=== PATIENT | female | born 1995 | race Caucasian/White ===

== ENCOUNTER 2018-08-08 01:08 | Emergency (ER) | payer BC, OTHER ==
--- NOTE | 2018-08-08 02:46 | ER Document Report ---
ED General - General Chief Complaint: Chest Pain Stated Complaint: CHEST PAIN Time Seen by Provider: 08/08/18 02:36 Notes: Patient is a 23-year-old female presents with complaint of chest pain. She says it feels like a pressure type pain going throughout her entire chest. Says it is worse when she takes a deep breath. Started earlier today. Some mild shortness of breath. No fevers. No vomiting. No abdominal pain. No vaginal bleeding. She is 29 weeks . She denies ever having this before. The only complication with her thus far is that she recently tested positive for gestational diabetes; however, her repeat testing was normal. No high blood pressure. No preeclampsia thus far. No other complaints at this time. No extremity pain or swelling. TRAVEL OUTSIDE OF THE [place] IN LAST 30 DAYS: No - Related Data Allergies/Adverse Reactions: No Known Allergies Allergy (Unverified 08/08/18 01:11) Past Medical History - Social History Smoking Status: Never Smoker Frequency of alcohol use: None Drug Abuse: None Family History: Reviewed & Not Pertinent Patient has suicidal ideation: No Patient has homicidal ideation: No Renal/ Medical History: Denies: Hx Peritoneal Dialysis Review of Systems - Review of Systems Notes: My Normal Review Basic REVIEW OF SYSTEMS: CONSTITUTIONAL : Denies fever, chills, or sweats. Denies recent illness. EENT: Denies eye, ear, throat, or mouth pain or symptoms. Denies nasal or sinus congestion. CARDIOVASCULAR: Denies chest pain. RESPIRATORY: Dyspnea GASTROINTESTINAL: Denies abdominal pain. Denies nausea, vomiting, or diarrhea. GENITOURINARY: Denies difficulty urinating, painful urination, burning, frequ ency, or blood in urine. FEMALE GENITOURINARY: Denies vaginal bleeding, abnormal or irregular periods. LMP: Currently MUSCULOSKELETAL: Denies neck or back pain or joint pain or swelling. SKIN: Denies rash or skin lesions. NEUROLOGICAL: Denies altered mental status or loss of consciousness. Denies headache. Denies weakness or paralysis or loss of use of either side. Denies problems with gait or speech. Denies sensory or motor loss. ALL OTHER SYSTEMS REVIEWED AND NEGATIVE. Physical Exam - Vital signs Vitals: Temp Pulse Resp BP Pulse Ox 98.0 F 107 H 18 133/72 H 100 08/08/18 01:29 08/08/18 01:29 08/08/18 01:29 08/08/18 01:29 08/08/18 01:29 - Notes Notes: General Appearance: Well nourished, alert, cooperative, no acute distress, no obvious discomfort. Well-appearing. Vitals: reviewed, See vital signs table. Head: no swelling or tenderness to the head Eyes: PERRL, EOMI, Conjuctiva clear Mouth: No decreasd moisture Lungs: No wheezing, No rales, No rhonci, No accessory muscle use, good air exchange bilaterally. Heart: Tachycardic rate, Regular rythm, No murmur, no rub Abdomen: Normal BS, soft, No rigidity, No abdominal tenderness, No guarding, no rebound, no abdominal masses, no organomegaly Extremities: strength 5/5 in all extremities, good pulses in all extremities, no swelling or tenderness in the extremities, no edema. Skin: warm, dry, appropriate color, no rash Neuro: speech clear, oriented x 3, normal affect, responds appropriately to questions. Course - Re-evaluation Re-evalutation: 08/08/18 03:13 Patient has pleuritic chest pain with tachycardia and . Talk to patient length informed her that we do need to rule out PE. I talked at length about CT scan and radiation risks. Informed her that there is some slight radiation risk to the baby however this is less and most the radiation risk is actually to the mother itself. 08/08/18 05:[address] scan had a miss timed contrast bolus. I therefore was able to rule out large central PEs but not smaller peripheral PEs. Patient's oxygenation is 100%on room air. She looks well. She still has some pain but is reproducible palpation also and now she is noticing that it hurts worse if she leans forward. Suggest that this probably is muscular skeletal. She has had no recent fevers and has no pericardial effusion therefore pericarditis is highly unlikely. She clinically looks well. I informed her that I still recommend going forward with an ultrasound of the legs to make sure is no evidence of DVT being that the CT scan is not 100% conclusive. She agrees with this but does not want to wait here in the ED and prefers to have this performed out patiently. I therefore have written a prescription for an outpatient venous Doppler report performed. I strongly encouraged her return to ER immediately if she has fevers, worsening pain, difficulty breathing, or she feels unwell in any way. Patient agrees with plan will be discharged home. Dictation of this chart was performed using voice recognition software; therefore, there may be some unintended grammatical errors. - Vital Signs Vital signs: Temp Pulse Resp BP Pulse Ox 98.0 F 107 H 23 H 117/67 99 08/08/18 01:29 08/08/18 01:29 08/08/18 05:00 08/08/18 03:41 08/08/18 05:00 - Laboratory Result Diagrams: 08/08/18 03:13 08/08/18 03:13 Laboratory results interpreted by me: 08/08/18 08/08/18 08/08/18 02:31 03:13 03:13 RBC 2.96 L Hgb 9.1 L Hct 26.3 L Sodium 136.8 L Potassium 3.3 L Carbon Dioxide 20 L BUN 5 L Creatinine 0.37 L Glucose 111 H Urine Ketones TRACE H Ur Leukocyte Esterase MODERATE H - EKG Interpretation by Me Additional EKG results interpreted by me: 08/08/18 02:37 EKG is reviewed and interpreted by me. EKG shows sinus tachycardia with a rate of [address] segment elevation or depression. NM interval, QRS duration, QTc intervals are within normal range. No old EKG available for comparison. Discharge - Discharge Clinical Impression: Chest pain Qualifiers: Chest pain type: unspecified Qualified Code(s): R07.9 - Chest pain, unspecified Condition: Good Disposition: HOME, SELF-CARE Additional Instructions: The exact cause of your chest pain is not 100% clear. There is a good chance that it could be related to musculoskeletal tenderness of your rib cage pain being that your pain is worse with palpation and also worse when you go to lean forward. Being that your pain was worse with deep breathing we did do a CT scan looking at your lungs. This did not show evidence of a large or central blood clot. As discussed with you, the CT scan was unable to fully rule out small blood clots in the periphery of the lung. Because of this we do recommend going forward with an ultrasound of your lower extremities. If this is negative then at this time I do not feel that you need blood thinning medications. I have written you a prescription for an outpatient ultrasound of your legs to be performed. Please call the number and prescription and they will call you with an appointment time. Please follow-up very closely with your OB doctor this week for reevaluation. Have a low threshold to return to ER if you have worsening pain, difficulty breathing, fevers, or feel unwell. Forms: Follow-Up Outpatient Testing
[2018-08-08] MEDS ORDERED: NORMAL SALINE 1000 ML 1,000 ML IV ONE (02:47)
[2018-08-08 02:54] LABS: AMORPHOUS SEDIMENT,URINE TRACE /HPF; APPEARANCE,URINE SLIGHTLY-CLOUDY; BILIRUBIN,URINE NEGATIVE (NEGATIVE); COLOR,URINE YELLOW; GLUCOSE, URINE NEGATIVE (NEGATIVE); KETONES,URINE TRACE mg/dL (NEGATIVE); LEUKOCYTE ESTERASE,URINE MODERATE (NEGATIVE); NITRITE,URINE NEGATIVE (NEGATIVE); PROTEIN,URINE NEGATIVE (NEGATIVE); URINE SPECIFIC GRAVITY 1.008; UROBILINOGEN,URINE NEGATIVE mg/dL (<2.0)
[2018-08-08 03:23] LABS: ABSOLUTE LYMPHOCYTES (AUTO) 1.2 10^3/uL (0.5-4.7); ABSOLUTE MONOCYTES (AUTO) 0.7 10^3/uL (0.1-1.4); ABSOLUTE NEUT (AUTO) 6.3 10^3/uL (1.7-8.2); BASOPHILS % (AUTO) 0.2 % (0-2); EOSINOPHILS % (AUTO) 0.5 % (0-6); HEMATOCRIT 26.3 % (36.0-47.0); HEMOGLOBIN 9.1 g/dL (12.0-15.5); LYMPHOCYTES % (AUTO) 14.8 % (13-45); MEAN CORPUSCULAR HEMOGLOBIN 30.6 pg (27.0-33.4); MEAN CORPUSCULAR HGB CONC 34.5 g/dL (32.0-36.0); MEAN CORPUSCULAR VOLUME 89 fl (80-97); MONOCYTES % (AUTO) 8.5 % (3-13); PLATELET COUNT 294 10^3/uL (150-450); RED BLOOD COUNT 2.96 10^6/uL (3.72-5.28); RED CELL DISTRIBUTION WIDTH 13.3 % (11.5-14.0); TOTAL CELLS COUNTED % (AUTO) 100 %; WHITE BLOOD COUNT 8.3 10^3/uL (4.0-10.5)
[2018-08-08 03:33] LABS: ANION GAP 10 (5-19); BLOOD UREA NITROGEN 5 mg/dL (7-20); CALCIUM 8.9 mg/dL (8.4-10.2); CARBON DIOXIDE 20 mmol/L (22-30); CHLORIDE 107 mmol/L (98-107); GLUCOSE 111 mg/dL (75-110); POTASSIUM 3.3 mmol/L (3.6-5.0); SODIUM 136.8 mmol/L (137-145)
[2018-08-08] MEDS ORDERED: POTASSIUM CHLORIDE 10 MEQ CAPSULE.ER PO ONE (04:07)
--- NOTE | 2018-08-08 04:35 | RADIOLOGY REPORT (SQ) ---
EXAM DESCRIPTION: CT CHEST ANGIOGRAPHY WITHOUT THEN WITH IV CONTRAST COMPLETED DATE/TME: 08/08/2018 02:46 CLINICAL HISTORY: 23 years, Female, chest pain, tachycardia in COMPARISON: None. TECHNIQUE: [id number] Images stored on PACS. All CT scanners at this facility use dose modulation, iterative reconstruction, and/or weight based dosing when appropriate to reduce radiation dose to as low as reasonably achievable (ALARA). Axial CTA images with coronal and sagittal MIPS reconstructions [facility]: Dose Right [facility]: CareDose [facility]: Dose Right [facility]: Teradose 4D [facility]: [employer] LIMITATIONS: None. FINDINGS: Contrast bolus is nearly nondiagnostic. No large or central pulmonary embolus. Evaluation of the remaining branches are nondiagnostic. Negative for thoracic aortic aneurysm or dissection. No mediastinal or hilar adenopathy. Heart and pericardium are unremarkable. Limited evaluation of upper abdomen unremarkable. Osseous structures grossly intact. No pneumothorax. Tiny left pleural effusion. IMPRESSION: Nearly nondiagnostic exam. No large or central pulmonary embolus. Tiny left pleural effusion TECHNICAL DOCUMENTATION: Quality ID # [id number]: Final reports with documentation of one or more dose reduction techniques (e.g., Automated exposure control, adjustment of the mA and/or kV according to patient size, use of iterative reconstruction technique) copyright 2010 [employer]- All Rights Reserved
[2018-08-08] MEDS ORDERED: ACETAMINOPHEN 325 MG TABLET PO ONE (04:51)
[2018-08-08 06:08] VITALS: BP 114/72
--- NOTE | 2018-08-08 10:39 | EKG REPORT ---
SEVERITY:- OTHERWISE NORMAL ECG - SINUS TACHYCARDIA LVH : Confirmed by: Robert Smith 08-Aug-2018 10:38:41
== END 2018-08-08 06:10 | disposition home or self-care (01) ==
LOC: ER 01:08
DX: O26.892 Other specified pregnancy related conditions, second trimester (principal); R07.89 Other chest pain; R00.0 Tachycardia, unspecified; R06.02 Shortness of breath; Z3A.26 26 weeks gestation of pregnancy
CPT/HCPCS: 93005; 99285; 96360; 36415; 82962; 87086; 85025; 80048; 81001; 71275; 93010; J7030

== ENCOUNTER 2018-10-08 13:01 | Outpatient (CLI) | payer BC, OTHER ==
[~2018-10-08 13:01] MED LIST: FERRIC CARBOXYMALTOSE 750 MG in NORMAL SALINE 250 ML IV PRN; NORMAL SALINE 250 ML IV PRN
[2018-10-08 14:05] VITALS: BP 131/66
== END 2018-10-08 14:33 | disposition home or self-care (01) ==
LOC: II 13:01 → 5TH 14:02 → II 14:33
PROVIDERS: ATTEND Midwife
PROC: 3E033GC Introduction of Other Therapeutic Substance into Peripheral Vein, Percutaneous Approach (ICD-10-PCS; principal; 2018-10-08)
DX: O99.019 Anemia complicating pregnancy, unspecified trimester (principal)
CPT/HCPCS: 96365; J7050; J1439

== ENCOUNTER 2018-10-15 13:07 | Outpatient (CLI) | payer BC, OTHER ==
[2018-10-15 13:38] VITALS: BP 135/66
== END 2018-10-15 14:07 | disposition home or self-care (01) ==
LOC: II 13:07 → 5TH 13:09 → II 14:07
PROVIDERS: ATTEND Midwife
PROC: 3E033GC Introduction of Other Therapeutic Substance into Peripheral Vein, Percutaneous Approach (ICD-10-PCS; principal; 2018-10-15)
DX: O99.019 Anemia complicating pregnancy, unspecified trimester (principal)
CPT/HCPCS: 96365; J7050; J1439

== ENCOUNTER 2018-10-27 00:15 | Inpatient (IN) | payer BC, OTHER ==
[2018-10-27 01:00] LABS: APPEARANCE,URINE CLOUDY; BILIRUBIN,URINE NEGATIVE (NEGATIVE); COLOR,URINE YELLOW; GLUCOSE, URINE NEGATIVE (NEGATIVE); KETONES,URINE NEGATIVE (NEGATIVE); LEUKOCYTE ESTERASE,URINE TRACE (NEGATIVE); NITRITE,URINE NEGATIVE (NEGATIVE); PROTEIN,URINE NEGATIVE (NEGATIVE); URINE SPECIFIC GRAVITY 1.003; UROBILINOGEN,URINE NEGATIVE mg/dL (<2.0)
[2018-10-27] MEDS ORDERED: RINGERS SOLUTION,LACTATED 1,000 ML IV PRN (01:07)
[2018-10-27] MEDS ORDERED: RINGERS SOLUTION,LACTATED 1,000 ML IV ONE (01:07)
[2018-10-27] MEDS ORDERED: MISOPROSTOL 0.2 MG TABLET ONE ×2 (01:25→17:35)
[2018-10-27] MEDS ORDERED: OXYTOCIN 10 UNIT/ML VIAL ONE (01:25)
[2018-10-27] MEDS ORDERED: LIDOCAINE 1% INJ-PF (10 MG/ML) 30 ML SDV ONE (01:25)
[2018-10-27] MEDS ORDERED: OXYTOCIN/NORMAL SALINE 0 UNIT/0 ML RTUINJ ONE (01:25)
[2018-10-27 01:35] LABS: URINE AMPHETAMINES SCREEN NEGATIVE; URINE BARBITURATES SCREEN NEGATIVE; URINE BENZODIAZEPINES SCREEN NEGATIVE; URINE COCAINE SCREEN NEGATIVE; URINE MARIJUANA (THC) SCREEN NEGATIVE; URINE METHADONE SCREEN NEGATIVE; URINE PHENCYCLIDINE SCREEN NEGATIVE
[2018-10-27 01:37] LABS: ABSOLUTE EOSINOPHILS # (AUTO) 0.1 10^3/uL (0.0-0.6); ABSOLUTE MONOCYTES (AUTO) 0.8 10^3/uL (0.1-1.4); ABSOLUTE NEUT (AUTO) 4.8 10^3/uL (1.7-8.2); BASOPHILS % (AUTO) 0.5 % (0-2); EOSINOPHILS % (AUTO) 1.7 % (0-6); HEMATOCRIT 27.4 % (36.0-47.0); HEMOGLOBIN 9.1 g/dL (12.0-15.5); LYMPHOCYTES % (AUTO) 26.2 % (13-45); MEAN CORPUSCULAR HEMOGLOBIN 28.5 pg (27.0-33.4); MEAN CORPUSCULAR HGB CONC 33.4 g/dL (32.0-36.0); MEAN CORPUSCULAR VOLUME 85 fl (80-97); PLATELET COUNT 197 10^3/uL (150-450); RED BLOOD COUNT 3.21 10^6/uL (3.72-5.28); RED CELL DISTRIBUTION WIDTH 19.3 % (11.5-14.0); SEGMENTED NEUTROPHILS % (AUTO) 61.6 % (42-78); TOTAL CELLS COUNTED % (AUTO) 100 %; WHITE BLOOD COUNT 7.8 10^3/uL (4.0-10.5)
[2018-10-27] MEDS ORDERED: OXYTOCIN/NORMAL SALINE 20 UNIT/1,000 ML RTUINJ IV PRN ×2 (03:15→11:39)
[2018-10-27] MEDS ORDERED: OXYTOCIN/NORMAL SALINE 20 UNIT/1,000 ML RTUINJ ONE ×2 (04:32→18:52)
[2018-10-27] MEDS ORDERED: PHENYLEPHRINE HCL INJ/PF 10 MG/1 ML SDV ONE (06:44)
[2018-10-27] MEDS ORDERED: BUPIVACAINE HCL 0.25 % INJ/PF (2.5 MG/1 ML) 30 ML VIAL ONE (06:45)
[2018-10-27] MEDS ORDERED: EPHEDRINE SULFATE INJ 50 MG/1 ML AMPULE ONE (06:45)
[2018-10-27] MEDS ORDERED: FENTANYL/BUPIVACAINE/NS/PF 300 MCG/150 ML RTUINJ EPI ONE (06:45)
[2018-10-27] MEDS ORDERED: FENTANYL CITRATE INJ/PF 100 MCG/2 ML AMPUL ONE (06:45)
--- NOTE | 2018-10-27 06:58 | Admission Physical ---
Datetime Report Generated by CPN: 10/27/2018 06:58 CURRENT ADMISSION Chief Complaint: Uterine Contractions; Suspected Ruptured Membranes Indication for Induction: PROM Indication for Induction- Other: Augmentation for PROM Admit Impression : Term, Intrauterine ; No Active Labor; Ruptured Membranes; Induction of Labor Admit Plan: Admit to Unit; Initiate Labor Induction Protocol ALLERGIES Medication Allergies: No Medication Allergies: No Known Allergies (10/27/2018) Latex: No Latex Allergies OBSTETRICAL HISTORY EDC: 10/25/2018 00:00 : 1 Para: 0 Term: 0 : 0 SAB: 0 IAB: 0 Ectopic: 0 Livin Cesareans: 0 VBACs: 0 Multiple Births: 0 Gestational Diabetes: Yes Rh Sensitization: No Incompetent Cervix: No FRANCESCA: No Infertility: No ART Treatment: No Uterine Anomaly: No IUGR: No Hx Previous C/S: No Macrosomia: No Hx Loss/Stillborn: No PIH: No Hx : No Placenta Previa/Abruption: No Depression/PP Depression: No PTL/PROM: No Post Hemorrhage: No Current Procedures: Ultrasound Obstetrical History Comments: G1- Current; GDM diet controlled; anemia w/iron transfusion SEE RECORDS Alcohol: No Marijuana : No Cocaine: No Other Illicit Drugs: No Cigarettes: Former Smoker. 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 Surgery: No Heart Disease: No Hosp/Surgery: No Autoimmune Disorder: No Anesthetic Complications: No Kidney Disease: No Abnormal Pap Smear: No Neuro/Epilepsy: No Psychiatric Disorders: No Other Medical Diseases: No Hepatitis/Liver Disease: No Significant Family History: No Varicosities/Phlebitis: No Trauma/Violence : No Thyroid Dysfunction: No INFECTIOUS HISTORY Gonorrhea: No Genital Herpes: No Chlamydia: No Tuberculosis: No Syphilis: No Hepatitis: No HIV/AIDS Exposure: No Rash or Viral Illness: No HPV: No PHYSICAL EXAM General: Normal HEENT: Normal Neurologic: Normal Thyroid: Deferred Heart: Normal Lungs: Normal Breast: Deferred Back: Normal Abdomen: Normal Genitourinary Exam: Normal Extremities: Normal DTRs: Normal Pelvic Type: Adequate Vital Signs: Reviewed VAGINAL EXAM Dilatation: 6 Effacement: 80 Station: -1 Contraction Comments: q 2-4 MEMBRANES Membranes: Ruptured Amniotic Fluid Color: Clear FETUS A EGA: 40.2 Monitoring: External US FHR- Baseline: 125 Variability: Moderate 6-25bpm Accelerations: 15X15 Decelerations: None FHR Category: Category I Presentation: Vertex Admit Comment: 23yo at 40+2ega presents for PROM at approx 2330 (ctx started at approx 2030). Cvx was initially 3cm then after 2 hours on floor no significant change and ctx spacing out. Pitocin started. A1GDM with patient intermittently bringing log. Admit to Labor and delivery for PROM. Anticipate . GBS negative. also complicated by anemia - recieving iron infusions . PLANS FOR LABOR AND DELIVERY Labor and Delivery: None Pain Management: Natural Feeding Preference: Breast Benefit of Breast Feed Discussed: Yes Circumcision: N/A INFORMED CONSENT Informed Consent Obtained: Vaginal Delivery; Induction of Labor; Risks, Benefits and Alternatives Discussed Signature: with User ID: [email or web address]
[2018-10-27] MEDS ORDERED: ACETAMINOPHEN WITH CODEINE #3 TABLET PO PRN ×2 (11:39→18:17)
[2018-10-27] MEDS ORDERED: ZOLPIDEM TARTRATE 5 MG TABLET PO PRN (11:39)
[2018-10-27] MEDS ORDERED: MEASLES,MUMPS&RUBELLA VACC/PF 0.5 ML VIAL SUBCUT PRN (11:39)
[2018-10-27] MEDS ORDERED: DIBUCAINE 1% OINTMENT 56 GM TP PRN (11:39)
[2018-10-27] MEDS ORDERED: BENZOCAINE/MENTHOL AEROSOL SPRAY 56 ML TOP PRN (11:39)
[2018-10-27] MEDS ORDERED: DIPH/PERTUSS(ACELL)/TETANUS VAC/PF 0.5 ML SYR (>=10YO) IM PRN (11:39)
--- NOTE | 2018-10-27 11:46 | Warning Signs in Babies ---
VOD Warning Signs Datetime Report Generated by [facility]: 10/27/2018 11:46 VOD#608 -Warning Signs in Babies: Needs to be viewed. (10/27/2018 11:30:Isac Castillo RN)
--- NOTE | 2018-10-27 11:57 | Warning Signs in Babies ---
VOD Warning Signs Datetime Report Generated by [facility]: 10/27/2018 11:57 VOD#608 -Warning Signs in Babies: Viewed with Parent(s)/Family (10/27/2018 11:30:Isac Castillo RN)
[2018-10-27] MEDS ORDERED: IBUPROFEN 800 MG TABLET ONE (12:11)
--- NOTE | 2018-10-27 13:25 | Delivery Summary ---
Del Sum A-C Datetime Report Generated by CPN: 10/27/2018 13:24 DELIVERY PERSONNEL DELIVERY PERSONNEL: [id number] Delivery Doctor:: Sahra Olivares CNM Labor and Delivery Nurse:: Iasc Castillo RNcontinuous pillowcase cutter Nurse:: YAHIR Phillips Supervisor Lead Burning/MEAT STOCKER: Fabio Foley, CABLE INSTALLER REPAIRER HELPER Additional Personnel: : Cyndee Yun RN MATERNAL INFORMATION Delivery Anesthesia: Epidural Medications After Delivery: Pitocin Bolus-Please Comment; Pitocin Drip 20 Units/1000ml NSS Meds After Delivery Comment: Pitocin 20 units in 1000 mL bolusing Maternal Complications: None Provider Comments: of viable female. Body cord noted at delivery. Baby vigorous and crying. Placed on pts abdoman in stable condition. Delayed cord clamping x 2 minutes. then cord clamped and cut. Cord blood obtained. Placenta S/C/I, IV Pitocin infusing. FF w/ decreased lochia. Repair of 1st degree laceration. Pt and baby left in stable condition, Apgars 9,9. QBL 200 ml. Attending MD is Dr Lopez LABOR SUMMARY EDC: 10/25/2018 00:00 No. Babies in Womb: 1 Attempted: No Labor Anesthesia: Epidural LABOR INFORMATION Reason for Induction: Not Applicable Onset of Labor: 10/26/2018 18:30 Complete Dilatation: 10/27/2018 10:37 Oxytocin: Augmentation Group B Beta Strep: negative Steroids Given: None Reason Steroids Not Administered: Not Applicable MEMBRANES Membranes Rupture Method: Spontaneous Rupture of Membranes: 10/26/2018 23:30 Length of Rupture (hr): 11.65 Amniotic Fluid Color: Clear Amniotic Fluid Amount: Moderate Amniotic Fluid Odor: Normal STAGES OF LABOR Stage 1 hr: 16 Stage 1 min: 7 Stage 2 hr: 0 Stage 2 min: 32 Stage 3 hr: 0 Stage 3 min: 4 Total Time in Labor hr: 16 Total Time in Labor min: 43 VAGINAL DELIVERY Episiotomy: None Laceration #1: Perineal Laceration Extension #1: First Degree Laceration Repair: Yes Laceration Repair Note: 1st degree laceration repaired w/ 3.[address] needle, pt tolerated well Sponge Count Correct: Yes Sharps Count Correct: Yes CSECTION DELIVERY Primary Indication: N/A Secondary Indication: N/A CSection Incidence: N/A Labor: N/A Elective: N/A CSection Incision: N/A BABY A INFORMATION Delivery Date/Time: 10/27/2018 11:09 Method of Delivery: Vaginal Born in Route : No : N/A Forceps: N/A Vacuum Extraction: N/A Shoulder Dystocia : No PRESENTATION/POSITION BABY A Presentation: Cephalic Cephalic Presentation: Vertex Vertex Position: Right Occipital Anterior Breech Presentation: N/A PLACENTA INFORMATION BABY A Placenta Delivery Time : 10/27/2018 11:13 Placenta Method of Delivery: Spontaneous Placenta Status: Delivered SCORES BABY A Heart Rate 1 min: >100 bpm Resp Effort 1 min: Good Cry Reflex Irritability 1 min: Cough or Sneeze or Pulls Away Muscle Tone 1 min: Active Motion Color 1 min: Body Collins, Extremities Blue Resuscitation Effort 1 min: N/A SCORE 1 MIN: 9 Heart Rate 5 min: >100 bpm Resp Effort 5 min: Good Cry Reflex Irritability 5 min: Cough or Sneeze or Pulls Away Muscle Tone 5 min: Active Motion Color 5 min: Body Collins, Extremities Blue Resuscitation Effort 5 min: N/A SCORE 5 MIN: 9 INFORMATION BABY A Gestational Age at Delivery: 40.2 Gestational Status: Full Term- 39- 40.6 Weeks Outcome : Liveborn Infant Condition : Stable Sex: Female IDENTIFICATION BABY A Infant Verification Date/Time: 10/27/2018 11:20 ID Band Number: [id number] Mother's Name Verified: Yes Infant RN Verifying Infant: Carmella Camp RNC Additional Verifying Personnel: Isac Castillo RN WEIGHT/LENGTH BABY A Birthweight (gm): 3484 Weight (lb): 7 Infant Weight (oz): 11 Infant Length (in): 20.00 Length (cm): 50.80 CORD INFORMATION BABY A No. Cord Vessels: 3 Nuchal Cord : N/A Nuchal Cord- Other: body cord x1, loose Cord Blood Taken: Yes-For Eval (Mom's Blood Type - or O+) Infant Suction: None ASSESSMENT BABY A Complications: Multiple Variable Decels; Meconium Complications- Other: terminal meconium Physical Findings at Delivery: Caput Succedaneum Infant Respirations: Appears Normal Skin to Skin: Yes Skin to Skin Time (min): 60 Airport Refueling Handler/ALS Called : No Care By: Fabio Foley RN Transferred To: Remains with Mother BABY B INFORMATION : N/A SIGNATURES Assignment: Jessi Lopez MD Signature: with User ID: [email or web address] : with User ID: [email or web address]
[2018-10-27] MEDS ORDERED: IBUPROFEN 800 MG TABLET PO SCH (14:00)
[2018-10-27] MEDS: DOCUSATE SODIUM 100 MG CAPSULE PO SCH (17:14)
[2018-10-27] MEDS: IBUPROFEN 800 MG TABLET PO SCH (17:14)
[2018-10-27] MEDS ORDERED: MISOPROSTOL 0.2 MG TABLET PR ONE (17:35)
--- NOTE | 2018-10-27 17:39 | PDOC PROGRESS REPORT ---
Subjective-OB Progress Note for:: 10/27/18 Subjective: She has some bleeding and cramping after delivery and breast feeding. One exam her bleeding looks controlled and her uterus feels above the umbilicus. We will proceed with some cytotec and check back to see if it is helping. Physical Exam (OB) Vital Signs: Temp Pulse Resp BP Pulse Ox 99.2 F 86 17 125/57 L 10/27/18 14:03 10/27/18 14:03 10/27/18 14:03 10/27/18 14:03 Intake & Output 10/26/18 10/27/18 10/28/18 06:59 06:59 06:59 Weight 77.3 kg Objective-Diagnostic Laboratory: 10/27/18 01:29 10/27/18 10/27/18 10/27/18 00:24 01:29 01:29 WBC 7.8 RBC 3.21 L Hgb 9.1 L Hct 27.4 L MCV 85 MCH 28.5 MCHC 33.4 RDW 19.3 H Plt Count 197 Seg Neutrophils % 61.6 Lymphocytes % 26.2 Monocytes % 10.0 Eosinophils % 1.7 Basophils % 0.5 Absolute Neutrophils 4.8 Absolute Lymphocytes 2.0 Absolute Monocytes 0.8 Absolute Eosinophils 0.1 Absolute Basophils 0.0 Urine Color YELLOW Urine Appearance CLOUDY Urine pH 7.0 Ur Specific [place] 1.003 Urine Protein NEGATIVE Urine Glucose (UA) NEGATIVE Urine Ketones NEGATIVE Urine Blood NEGATIVE Urine Nitrite NEGATIVE Ur Leukocyte Esterase TRACE H Blood Type O POSITIVE Antibody Screen NEGATIVE
[2018-10-27] MEDS ORDERED: FERROUS SULFATE 325 MG TABLET PO SCH (18:00)
[2018-10-27] MEDS ORDERED: ACETAMINOPHEN WITH CODEINE #3 TABLET ONE (18:03)
[2018-10-27 19:50] LABS: HEMATOCRIT 19.8 % (36.0-47.0); MEAN CORPUSCULAR HEMOGLOBIN 28.1 pg (27.0-33.4); MEAN CORPUSCULAR HGB CONC 32.8 g/dL (32.0-36.0); MEAN CORPUSCULAR VOLUME 86 fl (80-97); PLATELET COUNT 191 10^3/uL (150-450); RED CELL DISTRIBUTION WIDTH 19.7 % (11.5-14.0)
[2018-10-27 19:53] LABS: HEMOGLOBIN 6.5 g/dL (12.0-15.5)
[2018-10-27] MEDS ORDERED: DIPHENHYDRAMINE HCL 25 MG CAPSULE PO PRN (20:38)
[2018-10-28] MEDS: IBUPROFEN 800 MG TABLET PO SCH ×3 (02:36→17:33)
--- NOTE | 2018-10-28 09:52 | PDOC PROGRESS REPORT ---
Subjective-OB Progress Note for:: 10/28/18 Subjective: Doing well, had 2 units of blood, , voiding, ambulating Physical Exam (OB) Vital Signs: Temp Pulse Resp BP Pulse Ox 98.6 F 69 18 106/75 100 10/28/18 08:13 10/28/18 08:13 10/28/18 08:13 10/28/18 08:13 10/28/18 08:13 Intake & Output 10/27/18 10/28/18 10/29/18 06:59 06:59 06:59 Intake Total 300 300 Balance 300 300 Weight 77.3 kg - PIH/Pre-Eclampsia Headache: Absent Epigastric Pain: No Visual Changes: No - Lochia Lochia Amount: Heavy >50 ml Lochia Color: Rubra/Red - Abdomen Description: Soft, Round Hernia Present: No Fundal Description: Firm, Non-Midline Fundal Height: 1/u - 2/u Objective-Diagnostic Laboratory: 10/27/18 19:39 10/27/18 10/27/18 01:29 19:39 WBC 14.0 H RBC 2.30 L Hgb 6.5 L D Hct 19.8 L MCV 86 MCH 28.1 MCHC 32.8 RDW 19.7 H Plt Count 191 Blood Type O POSITIVE Antibody Screen NEGATIVE Assessment and Plan(PN) - Assessment and Plan (1) Delivery normal Is this a current diagnosis for this admission?: Yes (2) Gestational diabetes mellitus (GDM) in childbirth, diet controlled Is this a current diagnosis for this admission?: Yes (3) Anemia Qualifiers: Anemia type: iron deficiency Is this a current diagnosis for this admission?: Yes - Time Spent with Patient Time with patient: Less than 15 minutes Medications reviewed and adjusted accordingly: Yes - Disposition Anticipated Discharge: Home Within: within 24 hours
[2018-10-28] MEDS: PRENATAL VITAMIN W DHA CAPSULE PO SCH (10:22)
[2018-10-28] MEDS: SENNOSIDES/DOCUSATE 8.6-50 MG 1 EACH TABLET PO SCH (10:22)
[2018-10-28] MEDS: DOCUSATE SODIUM 100 MG CAPSULE PO SCH ×2 (10:24→17:30)
[2018-10-28 10:47] LABS: HEMATOCRIT 22.7 % (36.0-47.0); MEAN CORPUSCULAR HGB CONC 33.9 g/dL (32.0-36.0); MEAN CORPUSCULAR VOLUME 85 fl (80-97); PLATELET COUNT 176 10^3/uL (150-450); RED BLOOD COUNT 2.66 10^6/uL (3.72-5.28); RED CELL DISTRIBUTION WIDTH 17.2 % (11.5-14.0); WHITE BLOOD COUNT 10.4 10^3/uL (4.0-10.5)
[2018-10-28 10:52] LABS: HEMOGLOBIN 7.7 g/dL (12.0-15.5)
[2018-10-29] MEDS: IBUPROFEN 800 MG TABLET PO SCH ×2 (02:19→11:18)
[2018-10-29 06:38] LABS: HEPATITIS C VIRUS AB <0.1 s/co ratio (0.0-0.9)
[2018-10-29] MEDS: DOCUSATE SODIUM 100 MG CAPSULE PO SCH (11:18)
[2018-10-29] MEDS: PRENATAL VITAMIN W DHA CAPSULE PO SCH (11:18)
[2018-10-29] MEDS: SENNOSIDES/DOCUSATE 8.6-50 MG 1 EACH TABLET PO SCH (11:19)
[2018-10-29 13:11] VITALS: BP 119/71
--- NOTE | 2018-10-29 14:50 | PDOC DISCHARGE SUMMARY ---
Final Diagnosis Discharge Date: 10/29/18 - Final Diagnosis (1) Delivery normal Is this a current diagnosis for this admission?: Yes Discharge Data - Discharge Medication Prescriptions: Ibuprofen [Motrin 800 mg Tablet] 800 mg PO Q8HP PRN #60 tablet PRN Reason: Home Medications: Ergocalciferol (Vitamin D2) [Vitamin D] 1 tab PO DAILY 10/27/18 Iron 1 tab PO DAILY 10/27/18 Vit,Calc76/Iron/Folic [Pnv 29-1 Tablet] 1 tab PO DAILY 10/27/18 Ranitidine HCl [Zantac 150 mg Tablet] 1 tab PO PRN PRN 10/27/18 Ibuprofen [Motrin 800 mg Tablet] 800 mg PO Q8HP PRN #60 tablet 10/29/18 Procedures: NST Intrapartum Procedure(s): Spontaneous Vaginal Delivery Complication(s): Laceration-Perineal Laceration-Degree: 1st - Diagnosis Test Laboratory: Temp Pulse Resp BP Pulse Ox 98.0 F 70 16 119/71 100 10/29/18 13:05 10/29/18 13:05 10/29/18 13:05 10/29/18 13:05 10/29/18 13:05 10/27/18 10/27/18 10/27/18 00:24 01:29 19:39 RBC 3.21 L 2.30 L Hgb 9.1 L 6.5 L D Hct 27.4 L 19.8 L Urine Opiates Screen NEGATIVE 10/28/18 10:30 RBC 2.66 L Hgb 7.7 L Hct 22.7 L Urine Opiates Screen - Discharge information/Instructions Discharge Activity: Activity As Tolerated, Pelvic Rest Discharge Diet: Regular Disposition: HOME, SELF-CARE Follow up with: [facility] in: 4, Weeks
== END 2018-10-29 16:20 | disposition home or self-care (01) | DRG 807 ==
LOC: LC 00:15 → UNDOADMIN 01:14 → LR 01:14 → 2S 13:57
PROVIDERS: ADMIT Student in an Organized Health Care Education/Training Program; ATTEND Student in an Organized Health Care Education/Training Program
PROC: 10E0XZZ Delivery of Products of Conception, External Approach (ICD-10-PCS; principal; 2018-10-27)
PROC: 0HQ9XZZ Repair Perineum Skin, External Approach (ICD-10-PCS; 2018-10-27)
PROC: 4A1HXCZ Monitoring of Products of Conception, Cardiac Rate, External Approach (ICD-10-PCS; 2018-10-27)
PROC: 30233N1 Transfusion of Nonautologous Red Blood Cells into Peripheral Vein, Percutaneous Approach (ICD-10-PCS; 2018-10-28)
DX: O24.420 Gestational diabetes mellitus in childbirth, diet controlled (principal); Z37.0 Single live birth; O99.02 Anemia complicating childbirth; D50.9 Iron deficiency anemia, unspecified; O70.0 First degree perineal laceration during delivery; O69.82X0 Labor and delivery complicated by other cord entanglement, without compression, not applicable or unspecified; Z87.891 Personal history of nicotine dependence; Z3A.40 40 weeks gestation of pregnancy
CPT/HCPCS: 36415; 36430; 80307; 81005; 84112; 85025; 86592; 86803; 86804; 86850; 86900; 86901; 86920; 94760; J2370; J2590; J3010; J3490; P9016